=== PATIENT | male | born 1995 ===

== ENCOUNTER 2016-11-12 11:51 | Emergency (ER) | payer OTHER ==
--- NOTE | 2016-11-12 12:10 | C.PDOC ---
History Of Present Illness 21-year-old male, presents to the emergency department with complaints of left- flank pain that started this morning associated with nausea, and has been gradually worsening. Patient took left over pain medication with minimal relief. Patient notes a Hx of kidney stones on left side. Denies vomiting, hematuria, dysuria, or any other associated symptoms. No other complaints at this time. Chief Complaint (Nursing): Back Pain History Per: Patient History/Exam Limitations: no limitations Onset/Duration Of Symptoms: Days Current Symptoms Are (Timing): Still Present Past Medical History Reviewed: Historical Data, Nursing Documentation, Vital Signs Vital Signs: Last Vital Signs Temp 98.1 F 11/12/16 15:37 Pulse 71 11/12/16 15:37 Resp 18 11/12/16 15:37 BP 121/78 11/12/16 15:37 Pulse Ox 98 11/12/16 15:53 Family History: States: Unknown Family Hx Review Of Systems Except As Marked, All Systems Reviewed And Found Negative. Constitutional: Negative for: Fever, Chills Cardiovascular: Negative for: Chest Pain Gastrointestinal: Negative for: Vomiting Genitourinary: Negative for: Dysuria, Frequency, Incontinence, Hematuria Musculoskeletal: Positive for: Back Pain Physical Exam - Physical Exam Appears: Non-toxic, No Acute Distress Skin: Warm, Dry, No Rash Head: Atraumatic, Normacephalic Eye(s): bilateral: Normal Inspection, PERRL Nose: Normal Oral Mucosa: Moist Lips: Normal Appearing Neck: Normal ROM Cardiovascular: Rhythm Regular Respiratory: Normal Breath Sounds, No Accessory Muscle Use Gastrointestinal/Abdominal: Soft, No Tenderness Back: CVA Tenderness (Left) Extremity: Normal ROM Neurological/Psych: Oriented x3, Normal Speech ED Course And Treatment - Laboratory Results Result Diagrams: 11/12/16 12:58 11/12/16 12:58 O2 Sat by Pulse Oximetry: 98 - CT Scan/US CT ABD.PEL Other Rad Studies (CT/US): Read By Radiologist, Radiology Report Reviewed CT/US Interpretation: Accession No. : [id number]. Patient Name / ID : LINNETTE MANNING / [id number]. Exam Date : 11/12/2016 13:39:24 ( Approved ). Study Comment : Sex / Age : M / 21Y. Creator : Ken Macias. Dictator : Ken Macias. Brass Plater : Box Car Bracer : Ken Macias. Approver2 : Report Date : 11/12/2016 14:32:33. My Comment : . PROCEDURE: CT Abdomen and Pelvis without intravenous contrast. HISTORY: L flank pain. COMPARISON: None. TECHNIQUE: Axial and reformatted coronal and sagittal CT images of the abdomen and pelvis were obtained without IV or oral contrast administration.. Contrast Dose: 0. Radiation dose: Total exam DLP = 1098.9 mGy-cm. This CT exam was performed using one or more of the following dose reduction techniques : Automated exposure control, adjustment of the mA and/or kV according to patient size, and/or use of iterative reconstruction technique. FINDINGS: LOWER THORAX: Unremarkable. LIVER: Unremarkable. No gross lesion or ductal dilatation. GALLBLADDER AND BILE DUCTS: Unremarkable. PANCREAS: Unremarkable. No gross lesion or ductal dilatation. SPLEEN: Unremarkable. ADRENALS: Unremarkable. No mass. KIDNEYS AND URETERS: [id number] left hydronephrosis and hydroureter up to 5 x 7 millimeter calculus at the mid left ureter. Two nonobstructing left renal calculi seen at the left kidney. The largest calculus seen at the lower pole measures 5 millimeter. No evidence of right hydronephrosis or right renal calculi. VASCULATURE: Unremarkable. No aortic aneurysm. BOWEL: Unremarkable. No obstruction. No gross mural thickening. APPENDIX: Unremarkable. Normal appendix. PERITONEUM: Unremarkable. No free fluid. No free air. LYMPH NODES: Unremarkable. No enlarged lymph nodes. BLADDER: Unremarkable. REPRODUCTIVE: Unremarkable. BONES: No acute fracture. OTHER FINDINGS: None. IMPRESSION: Mild-to- moderate left hydronephrosis and proximal hydroureter up to 5 x 7 millimeter calculus at the mid left ureter. Two nonobstructing left renal calculi. Otherwise no evidence of acute pathology in the abdomen and pelvis. Medical Decision Making Medical Decision Making: Plan: * CT Abd/Pel * CMP, Lipase * CBC * IVF, Toradol, Zofran * Urinalysis * Reassess and Disposition Pt is sleeping comfortably in stretcher, denies pain. Abdomen soft and nontender. Pt with stable vitals. Labs and Abd CT reviewed and d/w pt along with plan incl risks and benefits. Pt understands and does agree with plan Disposition Counseled Patient/Family Regarding: Studies Performed, Diagnosis, Need For Followup, Rx Given - Disposition Referrals: Geo Lynn Jr., MD [Staff Provider] - Disposition: HOME/ ROUTINE Disposition Time: 15:46 Condition: STABLE Additional Instructions: Please follow up with Urologist Take meds as directed Return to ER if worse Prescriptions: Ibuprofen [Motrin] 600 mg PO Q6H #20 tab oxyCODONE/Acetaminophen [Percocet 5/325 mg Tab] 1 tab PO PRN PRN #10 tab PRN Reason: Pain Tamsulosin [Flomax] 0.4 mg PO DAILY #7 cap Instructions: Renal Colic (ED) - Clinical Impression Clinical Impression: Renal colic - Scribe Statement The provider has reviewed the documentation as recorded by the Hernan Olsen All medical record entries made by the Merryibsummer were at my direction and personally dictated by me. I have reviewed the chart and agree that the record accurately reflects my personal performance of the history, physical exam, medical decision making, and the department course for this patient. I have also personally directed, reviewed, and agree with the discharge instructions and disposition.
[2016-11-12 12:23] VITALS: RESP 18
[2016-11-12] MEDS ORDERED: Sodium Chloride 0.9% 250 ML IV ONE (12:38)
[2016-11-12] MEDS ORDERED: Sodium Chloride 0.9% 1,000 ML IV ONE (12:43)
[2016-11-12 13:01] LABS: BASO % 0.4 % (0.0-2.0); EOS # 0.4 K/uL (0.0-0.7); EOS % 3.1 % (0.0-4.0); HEMATOCRIT 43.9 % (35.0-51.0); LYMPH # 1.1 K/uL (1.0-4.3); MEAN CELL VOLUME 84.1 fL (80.0-94.0); MEAN CORPUSCULAR HEMOGLOBIN 29.1 pg (27.0-31.0); MEAN CORPUSCULAR HGB CONC 34.6 g/dL (33.0-37.0); MEAN PLATELET VOLUME 9.2 fL (7.2-11.7); MONO # 0.9 K/uL (0.0-0.8); MONO % 7.2 % (0.0-10.0); PLATELET COUNT 262 K/uL (130-400); RED CELL DISTRIBUTION WIDTH 14.3 % (11.5-14.5); WHITE BLOOD COUNT 12.2 K/uL (4.8-10.8)
[2016-11-12 13:09] LABS: CHLORIDE 100 mmol/L (98-107); POTASSIUM 3.8 mmol/L (3.6-5.2); SODIUM 137 mmol/L (132-148)
[2016-11-12 13:11] LABS: ALB/GLOB RATIO 1.3 (1.0-2.1); ALKALINE PHOSPHATASE 64 U/L (38-126); AST/SGOT 25 U/L (17-59); BILIRUBIN,TOTAL 1.3 mg/dL (0.2-1.3); BLOOD UREA NITROGEN 12 mg/dL (9-20); CARBON DIOXIDE 24 mmol/L (22-30); GFR AFRICAN-AMERICAN > 60; TOTAL PROTEIN 7.9 g/dL (6.3-8.3)
[2016-11-12 13:12] LABS: ALT/SGPT 31 U/L (21-72); GLUCOSE,RANDOM 89 mg/dL (75-110)
[2016-11-12 14:00] LABS: EOSINOPHIL 2 % (0-4); REACTIVE LYMPHOCYTES 1 % (0-0); TOTAL CELLS COUNTED 100
[2016-11-12 14:01] LABS: LARGE PLATELETS PRESENT; NEUTROPHIL 79 % (50-75)
--- NOTE | 2016-11-12 14:34 | CT ---
PROCEDURE: CT Abdomen and Pelvis without intravenous contrast HISTORY: L flank pain COMPARISON: None. TECHNIQUE: Axial and reformatted coronal and sagittal CT images of the abdomen and pelvis were obtained without IV or oral contrast administration.. Contrast Dose: 0 Radiation dose: Total exam DLP = 1098.9 mGy-cm. This CT exam was performed using one or more of the following dose reduction techniques: Automated exposure control, adjustment of the mA and/or kV according to patient size, and/or use of iterative reconstruction technique. FINDINGS: LOWER THORAX: Unremarkable. LIVER: Unremarkable. No gross lesion or ductal dilatation. GALLBLADDER AND BILE DUCTS: Unremarkable. PANCREAS: Unremarkable. No gross lesion or ductal dilatation. SPLEEN: Unremarkable. ADRENALS: Unremarkable. No mass. KIDNEYS AND URETERS: [id number] left hydronephrosis and hydroureter up to 5 x 7 millimeter calculus at the mid left ureter. Two nonobstructing left renal calculi seen at the left kidney. The largest calculus seen at the lower pole measures 5 millimeter. No evidence of right hydronephrosis or right renal calculi. VASCULATURE: Unremarkable. No aortic aneurysm. BOWEL: Unremarkable. No obstruction. No gross mural thickening. APPENDIX: Unremarkable. Normal appendix. PERITONEUM: Unremarkable. No free fluid. No free air. LYMPH NODES: Unremarkable. No enlarged lymph nodes. BLADDER: Unremarkable. REPRODUCTIVE: Unremarkable. BONES: No acute fracture. OTHER FINDINGS: None. IMPRESSION: Umxo-hy-ujbuling left hydronephrosis and proximal hydroureter up to 5 x 7 millimeter calculus at the mid left ureter. Two nonobstructing left renal calculi. Otherwise no evidence of acute pathology in the abdomen and pelvis.
[2016-11-12 15:29] LABS: RBC URINE 3 /hpf (0-3); URINE BILIRUBIN NEGATIVE (NEGATIVE); URINE BLOOD NEGATIVE (NEGATIVE); URINE COLOR Yellow (YELLOW); URINE GLUCOSE (UA) NORMAL (Normal); URINE KETONE NEGATIVE (NEGATIVE); URINE LEUKOCYTE ESTERASE NEG Leu/uL (Negative); URINE PROTEIN NEGATIVE (NEGATIVE); WBC URINE 1 /hpf (0-5)
[2016-11-12 15:38] VITALS: BP 121/78; PULSE 71; TEMP 98.1
[2016-11-12 15:46] VITALS: O2SAT 98
== END 2016-11-12 16:13 | disposition home or self-care (01) ==
LOC: C.ER 11:51
DX: N13.2 Hydronephrosis with renal and ureteral calculous obstruction (principal); Z87.442 Personal history of urinary calculi
CPT/HCPCS: 74176; 80053; 81001; 83690; 85025; 96361; 96374; 96375; 99285; J1885; J2405; J7040

== ENCOUNTER 2018-03-14 12:35 | Day surgery (SDC) | payer OTHER ==
[2018-03-14] MEDS ORDERED: Lidocaine 2% Jelly (Uro-Jet) ONE (14:25)
[2018-03-14] MEDS ORDERED: cefTRIAXone 1 gm 1 GM/100 ML BAG IVPB ONE (14:25)
[2018-03-14] MEDS ORDERED: Iohexol 240 (50 ml) ONE (14:25)
[2018-03-14] MEDS ORDERED: Ciprofloxacin 400mg/200ml D5W 400 MG/200 ML BAG IVPB SCH (15:15)
[2018-03-14] MEDS ORDERED: Oxycodone/Acetaminophen 5/325 mg Tab PO PRN (15:16)
[2018-03-14] MEDS ORDERED: Midazolam 2 MG/2 ML VIAL ONE (15:17)
[2018-03-14] MEDS ORDERED: Propofol 10 mg/ml Inj (20 ML) ONE (15:18)
[2018-03-14] MEDS ORDERED: HYDROmorphone 0.5 mg/0.5 ml ISec IVP PRN (16:13)
[2018-03-14] MEDS ORDERED: Lactated Ringer's 1,000 ML IV SCH (16:15)
[2018-03-14 16:21] VITALS: O2SAT 100
[2018-03-14 18:22] VITALS: BP 113/68; PULSE 101; RESP 18; TEMP 98.9
--- NOTE | 2018-03-15 04:03 | HP ---
UROLOGY ADMISSION REASON FOR ADMISSION: Treatment of kidney stones. See previous notes. HISTORY OF PRESENT ILLNESS: The patient initially presented to a [facility] center, then he came to me. He is presenting with stone that was stented. He was not sure of all the details. He came to us with an encrusted stent, if we could be able to get the stent out. We, in fact, had put a second wire, and see the previously dictated note from last week. We put a stent in and now he is here for final treatment. I believe, he may even have a stone up in his kidney, but we just want to make sure that we spilt the kidney to the ureter. He is here today for cystoscope removal and urethroscopy. PAST MEDICAL HISTORY AND SURGICAL HISTORY: Listed in the chart. SOCIAL HISTORY: Remarkable. He is here with his mother. REVIEW OF SYSTEMS: Listed above. Noncontributory. MEDICATIONS: See the chart. PHYSICAL EXAMINATION: GENERAL: A well-nourished male, in no apparent distress. VITAL SIGNS: Within normal limits, included in the chart. LYMPH NODES: No cervical or axillary lymphadenopathy. ABDOMEN: Soft. Nontender. No CVA tenderness. GENITOURINARY: Normal male phallus without discharge. No testicular mass appreciated. DIAGNOSES: Urolithiasis, hematuria, and flank pain. ASSESSMENT: This is a very pleasant gentleman, initially presented to another institution. He had a stent inserted at that time, was unsure of all the details. We subsequently met the patient. We changed his stent which was very encrusted stent, and today, he is here now for the final treatment. PLAN: As outlined, 1. Antibiotics prophylaxis. 2. Ureteroscopy and possible laser lithotripsy. Further plans, we will follow. Bello Castro MD
--- NOTE | 2018-03-15 06:35 | OP ---
PROCEDURE DATE: 03/14/2018 PREOPERATIVE DIAGNOSES: Urolithiasis, hematuria, hydronephrosis. POSTOPERATIVE DIAGNOSES: Urolithiasis, hematuria, hydronephrosis. PROCEDURE: Cystoscopy, removal of a left double-J stent, ureteroscopy, retrograde pyelogram. SURGEON: Wolf Castro MD COMPLICATIONS: There were no complications. BLOOD LOSS: Less than 10 mL. INDICATIONS: See history and physical for further details. A very pleasant gentleman here for the above. At the termination of the procedure, there were no stents, no wires. There is a possibility for a lower pole stone, it does not really look like the urethra, it is definitely clear. See plans below. INDICATIONS: See history and physical for further details. A very pleasant gentleman who is here now to remove the stent and for ureteroscopy to see if there are any stones obstructing the ureter which is originally why it was put in. DESCRIPTION OF PROCEDURE: After obtaining informed consent, the patient was placed on the table. Routine monitors were placed. Time-out was called to confirm patient and positioning. We introduced the cystoscope via the urethra. There were no stones identified. No stricture was identified. The veru was relatively open. All within normal limits. The ureteral orifice was identified, the stent was removed. Picture was taken for one week, it is actually a little bit encrusted. Anyway, we removed the wire and removed the double-J stent. Actually, the wire did not go through the stent easily, so we just went adjacent and then we actually went with the ureteroscope with just direct visualization. We indicating without any difficulty, it was actually wide open, and there were no stone seen. on the direction with the camera and the fluoroscopic imaging. I then also did a hard copy of retrograde pyelogram. All within normal limits. There was some debris noted, but there was really nothing of stone size to speak of. The patient tolerated the procedure without any complication. The bladder was emptied, cystoscope removed. The patient tolerated the procedure well without complication. Bladder was emptied, cystoscope removed. Rectal exam was within normal limits. Bello Castro MD
--- NOTE | 2018-03-15 13:39 | RAD ---
Date of service: 03/14/2018 HISTORY: UROLITHIASIS COMPARISON: Abdominal radiograph performed 03/07/18 FINDINGS: Left-sided ureteral stent. Nonobstructive bowel gas pattern. No coarse calcifications appreciated. No acute osseous abnormality is detected. IMPRESSION: Left ureteral stent.
== END 2018-03-14 18:25 | disposition home or self-care (01) ==
LOC: C.SDS 12:35
PROVIDERS: ATTEND Urology
DX: N13.2 Hydronephrosis with renal and ureteral calculous obstruction (principal)
CPT/HCPCS: 52005; 52351; 74018; J0696; J0744; Q9966